=== PATIENT | male | born 1980 | race Caucasian/White ===

== ENCOUNTER 2017-03-01 08:38 | Emergency (ER) | payer BC ==
[2017-03-01] MEDS ORDERED: KETOROLAC 60 MG/2 ML VIAL IM STA (08:58)
--- NOTE | 2017-03-01 09:00 | ED ---
General Adult HPI - General Chief complaint: Abdominal Pain Stated complaint: rt flak pain Time Seen by Provider: 03/01/17 08:45 Source: patient, RN notes reviewed Mode of arrival: ambulatory Limitations: no limitations - History of Present Illness Initial comments: Patient is a 37-year-old male with significant past history for kidney stone, who presents emergency room today with a chief complaint of right-sided flank pain. He does admit that he has had this pain starting was given a few days ago. States he was diagnosed with kidney stone 6 months ago off of the CT. States this is the same pain. States starts in the right flank radiates around to the front towards the right testicle. States he had increased pain 2 days ago slightly improved yesterday but again while driving to work started to feel the pain once again. Patient denies any dysuria hematuria. He denies any nausea vomiting. Currently rates his pain 4/10 states is not taking any pain medication today. Patient denies any recent fever, chills, shortness of breath, chest pain, nausea or vomiting, numbness or tingling, dysuria or hematuria, constipation or diarrhea, headaches or visual changes, or any other complaints. - Related Data Previous Rx's Medication Instructions Recorded Ibuprofen [Motrin] 800 mg PO Q8HR #30 tab 03/01/17 Tamsulosin [Flomax] 0.4 mg PO DAILY #10 cap 03/01/17 Allergies Allergy/AdvReac Type Severity Reaction Status Date / Time No Known Allergies Allergy Verified 03/01/17 09:03 Review of Systems ROS Statement: Those systems with pertinent positive or pertinent negative responses have been documented in the HPI. ROS Other: All systems not noted in ROS Statement are negative. Past Medical History Additional Past Medical History / Comment(s): kidney stones History of Any Multi-Drug Resistant Organisms: None Reported Additional Past Surgical History / Comment(s): deviated septum Past Psychological History: No Psychological Hx Reported Smoking Status: Never smoker Past Alcohol Use History: None Reported Past Drug Use History: None Reported General Exam - General Exam Comments Initial Comments: General: The patient is awake and alert, in no distress, and does not appear acutely ill. Eye: Pupils are equal, round and reactive to light, extra-ocular movements are intact. No nystagmus. There is normal conjunctiva bilaterally. No signs of icterus. Ears, nose, mouth and throat: There are moist mucous membranes and no oral lesions. Neck: The neck is supple, there is no tenderness or JVD. Cardiovascular: There is a regular rate and rhythm. No murmur, rub or gallop is appreciated. Respiratory: Lungs are clear to auscultation, respirations are non-labored, breath sounds are equal. No wheezes, stridor, rales, or rhonchi. Gastrointestinal: Soft, non-distended, non-tender abdomen without masses or organomegaly noted. There is no rebound or guarding present. No CVA tenderness. Bowel sounds are unremarkable. Musculoskeletal: Normal ROM, no tenderness. Strength 5/5. Sensation intact. Pulses equal bilaterally 2+. Neurological: A&O x 3. CN II-XII intact, There are no obvious motor or sensory deficits. Coordination appears grossly intact. Speech is normal. Skin: Skin is warm and dry and no rashes or lesions are noted. Psychiatric: Cooperative, appropriate mood & affect, normal judgment. Limitations: no limitations Course Vital Signs 03/01/17 08:41 Temperature 97.5 F L Pulse Rate 64 Respiratory 20 Rate Blood Pressure 156/89 O2 Sat by Pulse 98 Oximetry Medical Decision Making - Medical Decision Making Patient's urinalysis reviewed shows 6 red cells. X-ray of the abdomen shows no obvious stone possibly 1 up in the right side kidney. Results were discussed with the patient. He does admit that he's had a CT previously within the past 6 months revealing kidney stones. He states the symptoms are consistent. He does have blood which is consistent with a kidney stone. At this time is comfortable resting here in the emergency room. He'll be discharged home and advised follow-up with his urologist. He is advised to return if symptoms increase or worsen. Be given prescriptions for ibuprofen and Flomax. Patient states her stated and is in agreement. - Lab Data Lab Results 03/01/17 Range/Units 09:00 Urine Color Yellow Urine Appearance Clear (Clear) Urine pH 5.5 (5.0-8.0) Ur Specific [place] 1.021 (1.001-1.035) Urine Protein Trace H (Negative) Urine Glucose (UA) Negative (Negative) Urine Ketones Negative (Negative) Urine Blood Small H (Negative) Urine Nitrite Negative (Negative) Urine Bilirubin Negative (Negative) Urine Urobilinogen 2.0 (<2.0) mg/dL Ur Leukocyte Esterase Negative (Negative) Urine RBC 6 H (0-5) /hpf Urine WBC 1 (0-5) /hpf Ur Squamous Epith Cells <1 (0-4) /hpf Urine Mucus Few H (None) /hpf Disposition Clinical Impression: Kidney stone Disposition: HOME SELF-CARE Condition: Good Instructions: Kidney Stones (ED) Additional Instructions: Please use medication as discussed. Please follow-up with urologist/family doctor in the next 2 days of symptoms have not improved. Please return to emergency room if the symptoms increase or worsen or for any other concerns. Prescriptions: Ibuprofen [Motrin] 800 mg PO Q8HR #30 tab Tamsulosin [Flomax] 0.4 mg PO DAILY #10 cap Referrals: Keith Bishop MD [Primary Care Provider] - 1-2 days Ha Stanton MD [STAFF PHYSICIAN] - 1-2 days Time of Disposition: 09:44
[2017-03-01 09:20] LABS: Appearance,Urine Clear (Clear); Bilirubin,Urine Negative (Negative); Glucose,Urine (UA) Negative (Negative); Ketones,Urine Negative (Negative); Leukocyte Esterase,Urine Negative (Negative); Mucus,Urine Few /hpf; Nitrite,Urine Negative (Negative); PH, Urine 5.5 (5.0-8.0); Particle Count 5773; Protein,Urine Trace (Negative); RBC,Urine 6 /hpf (0-5); Specific Gravity,Urine 1.021 (1.001-1.035); Squamous Epithelial Cell,Urine <1 /hpf (0-4); UA Billing (MACRO vs. MICRO) MICRO; WBC,Urine 1 /hpf (0-5)
--- NOTE | 2017-03-01 09:27 | XR ---
EXAMINATION TYPE: XR KUB , 2 VIEWS DATE OF EXAM ORDERED: 03/01/2017 HISTORY: pain. COMPARISON: None. FINDINGS: The abdominal gas pattern is normal. There is no evidence of obstruction or free air. Ther e is a tiny calcification in the left upper quadrant, likely related to the splenic artery. No defini te renal calcifications are seen. IMPRESSION: NO ACUTE INTRA-ABDOMINAL ABNORMALITY.
[2017-03-01 09:57] VITALS: BP 147/88; PULSE 62; RESP 18; TEMP 97.4
== END 2017-03-01 09:57 | disposition home or self-care (01) ==
LOC: EC 08:38
DX: N20.0 Calculus of kidney (principal)
CPT/HCPCS: 99284; 96372; 81001; 87086; 74000; J1885

== ENCOUNTER → 2017-03-25 | Outpatient (CLI) | payer BC ==
--- NOTE | 2017-03-25 07:58 | CT ---
EXAMINATION TYPE: CT abdomen pelvis wo/w con DATE OF EXAM: 03/25/2017 COMPARISON: Abdominal radiograph dated 03/01/2017. HISTORY: Patient complains of pelvic pressure and history or renal stones. CT DLP: 1809.8 mGycm Automated exposure control for dose reduction was used. TECHNIQUE: Helical acquisition of images was performed from the lung bases through the pelvis. CONTRAST: Performed with Oral Contrast and without and with IV Contrast, patient injected with 100 mL of Omnipa que 300. FINDINGS: LUNG BASES: No significant abnormality is appreciated. Minimal bibasilar dependent subsegmental atele ctasis is noted. LIVER/GB: No significant abnormality is appreciated. PANCREAS: No significant abnormality is seen. SPLEEN: No significant abnormality is seen. ADRENALS: No significant abnormality is seen. KIDNEYS: There is mild right hydroureteronephrosis with an obstructing right midureteral calculus destiny suring 3.4 mm x 4.4 mm in anterior posterior by craniocaudal dimension. There is mild proximal periur eteral and peripelvic fat stranding. No perinephric fat stranding or perirenal fluid collection is id entified. The kidneys enhance symmetrically, and the right kidney is not asymmetrically enlarged. Wit hin the upper pole of the left kidney there is a 6 mm hypoattenuated lesion that is too small to accu rately characterize, but measures Hounsfield units of simple fluid on pre and delayed imaging, statis tically representing a cyst. FREE AIR: No free air is visualized. RETROPERITONEAL ADENOPATHY: None visualized REPRODUCTIVE ORGANS: No significant abnormality is seen URINARY BLADDER: No significant abnormality is seen. PELVIC ADENOPATHY: None visualized. OSSEOUS STRUCTURES: No significant abnormality is seen. Minimal degenerative changes are seen of the visualized thoracolumbar spine. BOWEL: No significant abnormality is seen. OTHER: None. IMPRESSION: OBSTRUCTING 3.4 MM RIGHT MID URETERAL CALCULUS CREATING MILD PROXIMAL RIGHT HYDROURETERONEPHROSIS.
== END | disposition home or self-care (01) ==
LOC: RADCTMAIN 07:13
PROVIDERS: ATTEND Urology
DX: N13.2 Hydronephrosis with renal and ureteral calculous obstruction (principal)
CPT/HCPCS: 74178; Q9967

== ENCOUNTER → 2017-04-30 | Outpatient (CLI) | payer BC ==
--- NOTE | 2017-04-30 14:59 | XR ---
Abdomen HISTORY: Stone and right ureter, N20 Frontal view of the abdomen submitted on 2 images and correlated to previous CT scan 03/25/2017, abdom en film 03/01/2017 Possible calcification at the level of the right L5 transverse process corresponding to patient's marvin or CT. Calcifications within the pelvis are felt likely to be vascular. Lung bases are not included o n the exam. No pneumoperitoneum or bowel obstruction. IMPRESSION: Difficult to exclude ureteral calculus.
== END | disposition home or self-care (01) ==
LOC: RADXRMAIN 14:01
PROVIDERS: ATTEND Urology
DX: N20.1 Calculus of ureter (principal)
CPT/HCPCS: 74000

== ENCOUNTER → 2020-07-26 | Outpatient (CLI) | payer BC ==
--- NOTE | 2020-07-26 16:07 | CT ---
EXAMINATION TYPE: CT abdomen pelvis wo con DATE OF EXAM: 07/26/2020 HISTORY: Hematuria, flank pain CT DLP: 561.3 mGycm. Automated Exposure Control for Dose Reduction was Utilized. TECHNIQUE: CT scan of the abdomen and pelvis is performed without oral or IV contrast. COMPARISON: CT abdomen and pelvis March 25, 2017 FINDINGS: Within the limitations of a non-contrast study, the following observations are made. LUNG BASES: Persistent cardiomegaly. LIVER/GB: No significant abnormality is appreciated. PANCREAS: No significant abnormality is seen. SPLEEN: No significant abnormality is seen. ADRENALS: No significant abnormality is seen. KIDNEYS: No renal stones or hydronephrosis seen bilaterally. No intraluminal calculus and poorly dist ended bladder. Few scattered calcified phleboliths bilaterally redemonstrated BOWEL: Normal-appearing appendix extending medially from cecum incidentally noted. GENITAL ORGANS: No gross abnormality seen. LYMPH NODES: No greater than 1cm abdominal or pelvic lymph nodes are appreciated. OSSEOUS STRUCTURES: No significant abnormality is seen. OTHER: Small fat-containing left inguinal hernia. IMPRESSION: No renal stones or hydronephrosis is seen bilaterally on current study. No new or acute f indings seen to account for patient's symptoms of hematuria and flank pain currently.
== END | disposition home or self-care (01) ==
LOC: RADCTMAIN 15:43
PROVIDERS: ATTEND Family Medicine
DX: M54.5 Low back pain (principal)
CPT/HCPCS: 74176